=== PATIENT | female | born 1945 | race Caucasian/White ===

== ENCOUNTER 2022-02-21 08:44 | Day surgery (SDC) | payer OTHER, MEDICARE, SELFPAY ==
[~2022-02-21] VITALS: Ht 162.6 cm; Wt 68.0 kg
[2022-02-21] MEDS ORDERED: NS 100 ML BAG ONE (12:27)
[2022-02-21] MEDS ORDERED: NS IRRIG SOLN 1000 ML IR ONE (12:27)
[2022-02-21] MEDS ORDERED: ARTICAINE HCL/EPINEPHRINE 4%/1:200,000 BIT 1.7 ML CARTRIDGE IJ ONE (12:27)
[2022-02-21] MEDS ORDERED: BENZOCAINE 20% GEL 32 GM BOTTLE MM ONE (12:27)
[2022-02-21 13:06] VITALS: BP_SYST 128
== END 2022-02-21 13:00 | disposition home or self-care (01) ==
LOC: SDS 08:44 → SMU 08:48 → SDS 13:00
PROVIDERS: ATTEND Dentist General Practice
DX: M27.2 Inflammatory conditions of jaws (principal); K05.6 Periodontal disease, unspecified; I10 Essential (primary) hypertension; E78.5 Hyperlipidemia, unspecified; Z96.653 Presence of artificial knee joint, bilateral; Z90.710 Acquired absence of both cervix and uterus; Z90.49 Acquired absence of other specified parts of digestive tract; Z79.899 Other long term (current) drug therapy; Z20.822 Contact with and (suspected) exposure to COVID-19
CPT/HCPCS: 21026; 21215; 21248; 36415; 41826; 70140; 87426; C1713 ×2

== ENCOUNTER 2022-03-14 07:40 | Day surgery (SDC) | payer OTHER, MEDICARE ==
[~2022-03-14] VITALS: Ht 162.6 cm; Wt 71.7 kg
[2022-03-14 12:39] VITALS: BP_SYST 134
== END 2022-03-14 10:45 | disposition home or self-care (01) ==
LOC: SDS 07:40 → SMU 07:45 → SDS 10:45
PROVIDERS: ATTEND Dentist General Practice
DX: M27.2 Inflammatory conditions of jaws (principal); K05.6 Periodontal disease, unspecified; I10 Essential (primary) hypertension; E78.5 Hyperlipidemia, unspecified; M17.0 Bilateral primary osteoarthritis of knee; Z79.899 Other long term (current) drug therapy; Z20.822 Contact with and (suspected) exposure to COVID-19
CPT/HCPCS: 21025; 21215; 21248; 36415; 70140; 87426; C1713 ×2